=== PATIENT | male | born 1985 | race Caucasian/White ===

== ENCOUNTER 2017-10-22 09:50 | Emergency (ER) | payer MEDICAID ==
[~2017-10-22] VITALS: Ht 180.3 cm; Wt 79.4 kg
[2017-10-22] MEDS ORDERED: diphenhydrAMINE HCL 25 MG CAPSULE PO ONE (10:00)
--- NOTE | 2017-10-22 10:00 | NUR ---
[id number], [id number] FROM [facility]: FACIAL REDNESS, EYE REDNESS S/P PCN SHOT. RR IS EVEN AND UNLABORED WITH NAD NOTED. SKIN IS WARM AND DRY. AWAITING MD FOR EVAL.
[2017-10-22] MEDS ORDERED: diphenhydrAMINE HCL 50 MG CAPSULE ONE (10:06)
[2017-10-22] MEDS: ACETAMINOPHEN 325 MG TABLET PO ONE ×2 (10:08→10:44)
[2017-10-22] MEDS ORDERED: ACETAMINOPHEN ES 500 MG TABLET ONE (10:42)
--- NOTE | 2017-10-22 10:53 | NUR ---
Patient discharged to home in stable condition. Written and verbal after care instructions given. Patient verbalizes understanding of instruction.
[2017-10-22 10:54] VITALS: BP 138/62
== END 2017-10-22 11:03 | disposition home or self-care (01) ==
LOC: ER 09:53
DX: R68.89 Other general symptoms and signs (principal)
CPT/HCPCS: 99283; A4606; Q0163; Z7610